=== PATIENT | female | born 1995 | race Caucasian/White ===

== ENCOUNTER 2019-01-17 15:16 | Emergency (ER) | payer BC ==
[2019-01-17] MEDS ORDERED: GI COCKTAIL 45 ML (Maalox/Lidocaine) PO ONE (15:59)
[2019-01-17] MEDS ORDERED: PROTONIX 40 MG IV IV ONE ×2 (15:59→16:30)
[2019-01-17] MEDS ORDERED: Sodium Chloride 0.9% 1000 ML 1,000 ML IV SCH (16:00)
--- NOTE | 2019-01-17 16:06 | ERPHSYRPT ---
- History of Present Illness Time Seen by Provider: 01/17/19 15:45 Historian: patient Exam Limitations: clinical condition Patient Subjective Stated Complaint: mid epigastric region pain that causes light headedness, confusion, and sweating Triage Nursing Assessment: Pt began having pain in her mid epigastric region off and on about a month ago and has become more frequent, pain feels like a balloon filling up and then releasing, causes sweating, confusion, feels like the blood is rushing to her head, light headedness, vitals wnl, hx of stomach ulcers in 2012 and she thinks that she had them in her esophagus too, hx of h- pylori a couple of times, gall bladder has been removed due to having the same pain in the past and the pain did go away until now Physician History: PATIENT WITH A HISTORY OF H-PYLORI AND CHOLECYSTECTOMY 2012 COMPLAINS OF EPIGASTRIC PAIN FOR 1 MONTH INTERMITTENTLY. HAS ASSOCIATED NAUSEA, DENIES EMESIS , REFLUX SYMPTOMS, FEVER OR URINARY SYMPTOMS. Timing/Duration: week(s), intermittent Activities at Onset: none Quality: sharpness, stabbing Abdominal Pain Onset Location: epigastric Pain Radiation: no radiation Severity of Pain-Max: moderate Severity of Pain-Current: moderate Modifying Factors: Improves With: nothing, other (NO CORRELATION WITH MEALS) Previous symptoms: same symptoms as today (HISTORY OF GASTRIC ULCERS) Allergies/Adverse Reactions: ciprofloxacin [From Cipro] Allergy (Verified 01/17/19 15:45) Rash ciprofloxacin HCl [From Cipro] Allergy (Verified 01/17/19 15:45) Rash codeine Allergy (Verified 01/17/19 15:45) Rash hydrocodone bitartrate [From Vicodin] Adverse Reaction (Verified 01/17/19 15:45) Vomiting Hx Tetanus, Diphtheria Vaccination/Date Given: Yes Hx Influenza Vaccination/Date Given: Yes - Review of Systems Constitutional: No Fever, No Chills Eyes: No Symptoms Ears, Nose, & Throat: No Symptoms Respiratory: No Symptoms, No Cough, No Dyspnea Cardiac: No Symptoms, No Chest Pain, No Edema, No Syncope Abdominal/Gastrointestinal: Abdominal Pain, No Nausea, No Vomiting, No Diarrhea Genitourinary Symptoms: No Symptoms, No Dysuria Musculoskeletal: No Symptoms, No Back Pain, No Neck Pain Skin: No Rash Neurological: No Dizziness, No Focal Weakness, No Sensory Changes Psychological: No Symptoms Endocrine: No Symptoms All Other Systems: Reviewed and Negative - Past Medical History Pertinent Past Medical History: Yes Neurological History: No Pertinent History ENT History: No Pertinent History Cardiac History: No Pertinent History Respiratory History: No Pertinent History Endocrine Medical History: No Pertinent History Musculoskeletal History: No Pertinent History GI Medical History: Gallbladder Disease, Ulcer History: No Pertinent History Psycho-Social History: No Pertinent History Female Reproductive Disorders: No Pertinent History - Past Surgical History Past Surgical History: Yes Neuro Surgical History: No Pertinent History Cardiac: No Pertinent History Respiratory: No Pertinent History Gastrointestinal: Cholecystectomy Genitourinary: No Pertinent History Musculoskeletal: Orthopedic Surgery Female Surgical History: No Pertinent History Other Surgical History: tonsils, - Social History Smoking Status: Never smoker Exposure to second hand smoke: No Drug Use: none Patient Lives Alone: No - Female History Hx Now: No (Has Mirana) - Nursing Vital Signs Nursing Vital Signs: Initial Vital Signs Temperature 98.4 F 01/17/19 15:21 Pulse Rate 100 H 01/17/19 15:21 Blood Pressure 130/89 01/17/19 15:21 O2 Sat by Pulse Oximetry 97 01/17/19 15:21 Pain Scale Pain Intensity 7 - Physical Exam General Appearance: no apparent distress, alert Eye Exam: PERRL/EOMI, eyes nml inspection Ears, Nose, Throat Exam: normal ENT inspection, pharynx normal, moist mucous membranes Neck Exam: normal inspection, non-tender, supple, full range of motion Respiratory Exam: normal breath sounds, lungs clear, No respiratory distress Cardiovascular Exam: regular rate/rhythm, normal heart sounds Gastrointestinal/Abdomen Exam: soft, normal bowel sounds, tenderness (SUPERIOR EPIGASTRIC TENDERNESS ADJACENT TO XYPHOID PROCESS), other (THERE IS NO SUPRAPUBIC TENDERNESS), No mass Back Exam: normal inspection, normal range of motion, No CVA tenderness, No vertebral tenderness Extremity Exam: normal inspection, normal range of motion, pelvis stable Neurologic Exam: alert, oriented x 3, cooperative, normal mood/affect, nml cerebellar function, sensation nml, No motor deficits Skin Exam: normal color, warm, dry SpO2 Interpretation: normal SpO2: 97 - CT Exams Abdomen/Pelvis CT Interpretation: Discussed w/radiologist (NORMAL APPENDIX, NO FREE FLUID OR AIR, THERE IS A 6.3CM RIGHT OVARIAN CYST, IUD IN SITU) Ordered Tests: Active Orders 24 hr Category Date Time Status IV Insertion STAT Care 01/17/19 15:59 Active ABDOMEN AND PELVIS W CONTRAST [CT] Stat Exams 01/17/19 16:02 Completed AMYLASE Stat Lab 01/17/19 16:19 Completed CBC W DIFF Stat Lab 01/17/19 16:19 Completed CMP Stat Lab 01/17/19 16:19 Completed HCG,QUALITATIVE URINE Stat Lab 01/17/19 16:21 Completed LIPASE Stat Lab 01/17/19 16:19 Completed UA W/RFX UR CULTURE Stat Lab 01/17/19 16:21 Completed Medication Summary Generic Name Dose Route Start Last Admin Trade Name Freq PRN Reason Stop Dose Admin Sodium Chloride 1,000 mls @ 100 mls/hr 01/17/19 16:00 01/17/19 16:35 Sodium Chloride 0.9% 1000 Ml IV 02/16/19 15:59 100 mls/hr .Q10H CONCETTA Administration Discontinued Medications Generic Name Dose Route Start Last Admin Trade Name Freq PRN Reason Stop Dose Admin Al Hydrox/Mg Hydrox/Simethicone Confirm 01/17/19 16:32 Maalox Es 30 Ml Unit Dose Administered 01/17/19 16:33 Dose 30 ml .ROUTE .STK-MED ONE Lidocaine HCl Confirm 01/17/19 16:31 Xylocaine Hcl Viscous * Administered 01/17/19 16:32 Dose 15 ml .ROUTE .STK-MED ONE Magnesium Hydroxide 45 ml 01/17/19 15:59 01/17/19 16:39 Gi Cocktail 45 Ml (Maalox/Lidocaine) PO 01/17/19 16:00 45 ml STAT ONE Administration Pantoprazole Sodium 40 mg 01/17/19 15:59 01/17/19 16:40 Protonix 40 Mg Iv IV 01/17/19 16:00 40 mg STAT ONE Administration Pantoprazole Sodium Confirm 01/17/19 16:30 Protonix 40 Mg Iv Administered 01/17/19 16:31 Dose 40 mg IV .STK-MED ONE Lab/Rad Data: Laboratory Result Diagrams 01/17/19 16:19 01/17/19 16:19 Laboratory Results 01/17/19 01/17/19 01/17/19 Range/Units 16:21 16:21 16:19 WBC (4.0-10.5) K/mm3 RBC (4.1-5.4) M/mm3 Hgb (12.0-16.0) gm/dl Hct (35-47) % MCV (78-100) fl MCH (26-32) pg MCHC (32-36) g/dl RDW (11.5-14.0) % Plt Count (150-450) K/mm3 MPV (6-9.5) fl Gran % (36.0-66.0) % Eos # (Auto) (0-0.5) Absolute Lymphs (auto) (1.0-4.6) Absolute Monos (auto) (0.0-1.3) Lymphocytes % (24.0-44.0) % Monocytes % (0.0-12.0) % Eosinophils % (0.00-5.0) % Basophils % (0.0-0.4) % Absolute Granulocytes (1.4-6.9) Basophils # (0-0.4) Sodium 140 (137-145) mmol/L Potassium 3.7 (3.5-5.1) mmol/L Chloride 102 (98-107) mmol/L Carbon Dioxide 30 (22-30) mmol/L Anion Gap 12.1 (5-15) MEQ/L BUN 16 (7-17) mg/dL Creatinine 0.83 (0.52-1.04) mg/dL Estimated GFR > 60.0 ML/MIN Glucose 86 (74-106) mg/dL Calcium 9.1 (8.4-10.2) mg/dL Total Bilirubin 1.00 (0.2-1.3) mg/dL AST 113 H (14-36) U/L ALT 55 H (0-35) U/L Alkaline Phosphatase 77 (38-126) U/L Serum Total Protein 7.0 (6.3-8.2) g/dL Albumin 4.2 (3.5-5.0) g/dL Amylase (30-110) U/L Lipase (23-300) U/L Urine Color YELLOW (YELLOW) Urine Appearance CLEAR (CLEAR) Urine pH 9.0 (5-6) Ur Specific Tracy 1.008 (1.005-1.025) Urine Protein NEGATIVE (Negative) Urine Ketones NEGATIVE (NEGATIVE) Urine Blood MODERATE (0-5) Calin/ul Urine Nitrite NEGATIVE (NEGATIVE) Urine Bilirubin NEGATIVE (NEGATIVE) Urine Urobilinogen NEGATIVE (0-1) mg/dL Ur Leukocyte Esterase NEGATIVE (NEGATIVE) Urine WBC (Auto) NONE (0-5) /HPF Urine RBC (Auto) NONE (0-2) /HPF U Epithel Cells (Auto) NONE (FEW) /HPF Urine Bacteria (Auto) NONE (NEGATIVE) /HPF Urine Culture Reflexed NO (NO) Urine Glucose NEGATIVE (NEGATIVE) mg/dL Urine HCG, Qual NEGATIVE (Negative) 01/17/19 01/17/19 Range/Units 16:19 16:19 WBC 6.7 (4.0-10.5) K/mm3 RBC 4.80 (4.1-5.4) M/mm3 Hgb 13.8 (12.0-16.0) gm/dl Hct 42.2 (35-47) % MCV 87.9 (78-100) fl MCH 28.8 (26-32) pg MCHC 32.7 (32-36) g/dl RDW 13.6 (11.5-14.0) % Plt Count 267 (150-450) K/mm3 MPV 11.3 H (6-9.5) fl Gran % 64.3 (36.0-66.0) % Eos # (Auto) 0.04 (0-0.5) Absolute Lymphs (auto) 1.63 (1.0-4.6) Absolute Monos (auto) 0.71 (0.0-1.3) Lymphocytes % 24.2 (24.0-44.0) % Monocytes % 10.5 (0.0-12.0) % Eosinophils % 0.6 (0.00-5.0) % Basophils % 0.4 (0.0-0.4) % Absolute Granulocytes 4.32 (1.4-6.9) Basophils # 0.03 (0-0.4) Sodium (137-145) mmol/L Potassium (3.5-5.1) mmol/L Chloride (98-107) mmol/L Carbon Dioxide (22-30) mmol/L Anion Gap (5-15) MEQ/L BUN (7-17) mg/dL Creatinine (0.52-1.04) mg/dL Estimated GFR ML/MIN Glucose (74-106) mg/dL Calcium (8.4-10.2) mg/dL Total Bilirubin (0.2-1.3) mg/dL AST (14-36) U/L ALT (0-35) U/L Alkaline Phosphatase (38-126) U/L Serum Total Protein (6.3-8.2) g/dL Albumin (3.5-5.0) g/dL Amylase 45 (30-110) U/L Lipase 50 (23-300) U/L Urine Color (YELLOW) Urine Appearance (CLEAR) Urine pH (5-6) Ur Specific Tracy (1.005-1.025) Urine Protein (Negative) Urine Ketones (NEGATIVE) Urine Blood (0-5) Calin/ul Urine Nitrite (NEGATIVE) Urine Bilirubin (NEGATIVE) Urine Urobilinogen (0-1) mg/dL Ur Leukocyte Esterase (NEGATIVE) Urine WBC (Auto) (0-5) /HPF Urine RBC (Auto) (0-2) /HPF U Epithel Cells (Auto) (FEW) /HPF Urine Bacteria (Auto) (NEGATIVE) /HPF Urine Culture Reflexed (NO) Urine Glucose (NEGATIVE) mg/dL Urine HCG, Qual (Negative) - Progress Progress: improved, pain not gone completely Progress Note: 01/17/19 17:43 PATIENT ADMINISTERED IV NORMAL SALINE 200ML/HR, PEPCID 20MG IV, GI COCKTAIL ORALLY, TORADOL 30MG IV, DISCUSSED THE RESULTS OF CT SCAN FINDINGS, 6.3CM OVARIAN CYST Counseled pt/family regarding: lab results, diagnosis, need for follow-up, rad results - Departure Time of Disposition: 18:15 Departure Disposition: Home Clinical Impression: ABDOMINAL PAIN, RIGHT OVARIAN CYST Condition: Stable Critical Care Time: No Referrals: KIMBERLY MEHTA MD [Primary Care Provider] - Additional Instructions: TAKE 2 TEASPOONS OF EITHER MAALOX OR MYLANTA AFTER MEALS. ZOFRAN 4MG EVERY 6 HOURS FOR NAUSEA. PROTONIX 40MG DAILY FOR 1MONTH. FIORICET 1 TABLET EVERY 4 HOURS NEEDED FOR PAIN. CONSULT YOUR PRIMARY CARE PROVIDER FOR EVALUATION ALONG WITH YOUR SATELLITE DISH TECHNICIAN FOR EVALUATION OF YOUR OVARIAN CYST. RETURN TO EMERGENCY FOR INCREASING PAIN OR VOMITING. Prescriptions: Ondansetron ODT 4 MG [Zofran Odt 4 mg] 4 mg PO Q6H PRN PRN #10 tab.rapdis PRN Reason: Nausea PANTOPRAZOLE 40 mg Tablet [Protonix 40MG Tablet] 40 mg PO DAILY #30 tab
[2019-01-17 16:25] LABS: BASOPHIL % 0.4 % (0.0-0.4); Basophil (Absolute #) 0.03 (0-0.4); Eosinophil % 0.6 % (0.00-5.0); Eosinophil (Absolute #) 0.04 (0-0.5); Granulocyte Absolute (ANC) 4.32 (1.4-6.9); Granulocytes % 64.3 % (36.0-66.0); Hematocrit 42.2 % (35-47); Hemoglobin 13.8 gm/dl (12.0-16.0); Lymphocyte (Absolute #) 1.63 (1.0-4.6); Lymphocytes % 24.2 % (24.0-44.0); Mean Cell Volume 87.9 fl (78-100); Mean Corpuscular Hemoglobin 28.8 pg (26-32); Mean Corpuscular Hgb Concent. 32.7 g/dl (32-36); Mean Platelet Volume 11.3 fl (6-9.5); Monocyte (Absolute #) 0.71 (0.0-1.3); Monocytes % 10.5 % (0.0-12.0); Platelet Count 267 K/mm3 (150-450); Red Cell Distribution Width 13.6 % (11.5-14.0); White Blood Count 6.7 K/mm3 (4.0-10.5)
[2019-01-17] MEDS ORDERED: XYLOCAINE HCl Viscous ONE (16:31)
[2019-01-17] MEDS ORDERED: Sodium Chloride 0.9% 1000 ML 1,000 ML ONE (16:32)
[2019-01-17] MEDS ORDERED: MAALOX ES 30 ML UNIT DOSE ONE (16:32)
[2019-01-17 16:33] LABS: Appearance CLEAR (CLEAR); Bilirubin NEGATIVE (NEGATIVE); Blood MODERATE Ery/ul (0-5); Glucose NEGATIVE (NEGATIVE); Ketones NEGATIVE (NEGATIVE); Leukocyte Esterase NEGATIVE (NEGATIVE); Nitrite NEGATIVE (NEGATIVE); Protein,Urine Dip NEGATIVE (Negative); Specific Gravity 1.008 (1.005-1.025); Urobilinogen NEGATIVE mg/dL (0-1)
[2019-01-17 16:46] LABS: ALBUMIN 4.2 g/dL (3.5-5.0); ALKALINE PHOSPHATASE 77 U/L (38-126); AMYLASE 45 U/L (30-110); ANION GAP 12.1 MEQ/L (5-15); BLOOD UREA NITROGEN 16 mg/dL (7-17); CHLORIDE 102 mmol/L (98-107); Calcium 9.1 mg/dL (8.4-10.2); Carbon Dioxide 30 mmol/L (22-30); Creatinine 1 0.83 mg/dL (0.52-1.04); Glucose 86 mg/dL (74-106); LIPASE 50 U/L (23-300); Potassium 3.7 mmol/L (3.5-5.1); SGOT/AST 113 U/L (14-36); SGPT/ALT 55 U/L (0-35); SODIUM 140 mmol/L (137-145)
--- NOTE | 2019-01-17 17:12 | XRAY ---
Indication: Epigastric pain. Multiple contiguous axial images obtained through the abdomen and pelvis using 80 cc Isovue-370 contrast only. Comparison: None Lung bases are clear. Heart is not enlarged. Stomach is distended with food/fluid. Noncontrasted stomach and bowel loops appear nonobstructed. Normal appendix. Mild diffuse scattered colonic fecal debris throughout. 6.3 cm right ovary cyst. No free fluid/air. IUD and tampon in situ. Previous cholecystectomy. Remaining liver, pancreas, spleen, adrenal glands, kidneys, ureters, bladder, uterus, and aorta appear unremarkable. No pathologic retroperitoneal lymphadenopathy. Osseous structures intact. No ventral or inguinal hernias. Impression: 1. 6.3 cm right ovary cyst. IUD and tampon in situ. 2. Fecal stasis without obstruction. 3. Remaining CT abdomen/pelvis with contrast exam is negative. CTDI 16.31
[2019-01-17] MEDS ORDERED: TORAdol 30 mg Injection IV ONE (17:33)
[2019-01-17] MEDS ORDERED: TORAdol 30 mg Injection ONE (17:35)
[2019-01-17 19:23] VITALS: BP 139/98; PULSE 81; O2SAT 98
== END 2019-01-17 19:23 | disposition home or self-care (01) ==
LOC: ED 15:16
DX: R10.9 Unspecified abdominal pain (principal); N83.201 Unspecified ovarian cyst, right side; Z87.11 Personal history of peptic ulcer disease
CPT/HCPCS: 36000; 36415; 74177; 80053; 81001; 82150; 83690; 84703; 85025; 96360; 96361; 96374; 96375; 99284; J1885; A9270-GY

== ENCOUNTER 2019-02-13 17:59 | Emergency (ER) | payer BC ==
--- NOTE | 2019-02-13 18:30 | ERPHSYRPT ---
- History of Present Illness Historian: patient Exam Limitations: no limitations Patient Subjective Stated Complaint: Pain in the lower abdominal quadrants that radiates to the lower back, pain with palpatation on the right upper and lower quadrants, hx of ovarian cysts and was in this ER about 3 weeks ago for them, N& V due to abdominal pain Triage Nursing Assessment: Walked into ER, BP 148/96, rates pain 8/10, states that the pain is different then last time she was here, doesn't appear to be in any distress, color pink cool and dry Timing/Duration: today, worse Activities at Onset: none Quality: cramping, pressure Abdominal Pain Onset Location: RLQ, LLQ Pain Radiation: flank (bilat) Severity of Pain-Max: moderate Severity of Pain-Current: moderate Modifying Factors: Improves With: nothing Associated Symptoms: nausea, vomiting, No diarrhea, No headache, No loss of appetite, No shortness of breath Previous symptoms: no prior history Hx Tetanus, Diphtheria Vaccination/Date Given: Yes Hx Influenza Vaccination/Date Given: Yes <LUISA HERRERA - Last Filed: 02/13/19 18:58> <GIANLUCA LLOYD - Last Filed: 02/13/19 21:27> - History of Present Illness Time Seen by Provider: 02/13/19 18:20 Physician History: 23 y/o white female presents with bilat lower quad abd pain r>l and associated bilat flank pain. pt has been seen several times by either ED, pcp, or GI doctor in last 3 weeks. pt had h/o pudz and cholecystectomy in past and on a recent ct scan abd/pelvis, there was large right ovarian cyst. pelvic u/s a week later showed it smaller. pain today came on rather suddenly and one episode of vomiting. pt has a mirena in place. todays pain is different than abd pain of last 3 weeks (LUISA HERRERA) Allergies/Adverse Reactions: ciprofloxacin [From Cipro] Allergy (Verified 02/13/19 18:16) Rash ciprofloxacin HCl [From Cipro] Allergy (Verified 02/13/19 18:16) Rash codeine Allergy (Verified 02/13/19 18:16) Rash hydrocodone bitartrate [From Vicodin] Adverse Reaction (Verified 02/13/19 18:16) Vomiting Home Medications: Hyoscyamine Sulfate 0.125 mg [Anaspaz 0.125 mg] 0.125 mg PO UD PRN [History] - Review of Systems Constitutional: No Symptoms Eyes: No Symptoms Ears, Nose, & Throat: No Symptoms Respiratory: No Symptoms Cardiac: No Symptoms Abdominal/Gastrointestinal: Abdominal Pain, Nausea, Vomiting, No Diarrhea Genitourinary Symptoms: No Symptoms, No Dysuria, No Frequency, No Hematuria Musculoskeletal: No Symptoms Skin: No Symptoms Neurological: No Symptoms Psychological: No Symptoms Endocrine: No Symptoms Hematologic/Lymphatic: No Symptoms Immunological/Allergic: No Symptoms All Other Systems: Reviewed and Negative <LUISA HERRERA - Last Filed: 02/13/19 18:58> - Past Medical History Pertinent Past Medical History: Yes Neurological History: No Pertinent History ENT History: No Pertinent History Cardiac History: No Pertinent History Respiratory History: No Pertinent History Endocrine Medical History: No Pertinent History Musculoskeletal History: No Pertinent History GI Medical History: Gallbladder Disease, Ulcer History: No Pertinent History Psycho-Social History: No Pertinent History Female Reproductive Disorders: No Pertinent History - Past Surgical History Past Surgical History: Yes Neuro Surgical History: No Pertinent History Cardiac: No Pertinent History Respiratory: No Pertinent History Gastrointestinal: Cholecystectomy Genitourinary: No Pertinent History Musculoskeletal: Orthopedic Surgery Female Surgical History: No Pertinent History Other Surgical History: tonsils, - Social History Smoking Status: Never smoker Exposure to second hand smoke: No Drug Use: none Patient Lives Alone: No - Female History Hx Last Menstrual Period: 01/20/2019 Hx Now: No (Merena) <LUISA HERRERA - Last Filed: 02/13/19 18:58> - Physical Exam General Appearance: mild distress, alert, anxiety Eye Exam: PERRL/EOMI Ears, Nose, Throat Exam: normal ENT inspection, No TMs normal Neck Exam: normal inspection, non-tender, supple, full range of motion Respiratory Exam: normal breath sounds, lungs clear, airway intact, No chest tenderness, No respiratory distress Cardiovascular Exam: regular rate/rhythm, normal heart sounds, normal peripheral pulses Gastrointestinal/Abdomen Exam: soft, normal bowel sounds, tenderness (mild bilat lower quad tenderness), guarding (mild), No rebound Pelvic Exam: No not done Rectal Exam: not done Extremity Exam: normal inspection, normal range of motion, pelvis stable Neurologic Exam: alert, oriented x 3, cooperative, 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 tested Skin Exam: normal color, warm, dry Lymphatic Exam: No adenopathy SpO2 Interpretation: normal SpO2: 99 O2 Delivery: Room Air <LUISA HERRERA - Last Filed: 02/13/19 18:58> - Nursing Vital Signs Nursing Vital Signs: Initial Vital Signs Temperature 98.2 F 02/13/19 18:04 Pulse Rate 85 02/13/19 18:04 Blood Pressure 148/96 02/13/19 18:04 O2 Sat by Pulse Oximetry 99 02/13/19 18:04 Pain Scale Pain Intensity 8 - Course Nursing assessment & vital signs reviewed: Yes <LUISA HERRERA - Last Filed: 02/13/19 18:58> Ordered Tests: Active Orders 24 hr Category Date Time Status Clean Catch Urine Specimen STAT Care 02/13/19 18:32 Active IV Insertion STAT Care 02/13/19 18:32 Active ABDOMEN AND PELVIS W/0 CONTRAS [CT] Stat Exams 02/13/19 18:32 Taken AMYLASE Stat Lab 02/13/19 18:41 Completed CBC W DIFF Stat Lab 02/13/19 18:41 Completed CMP Stat Lab 02/13/19 18:41 Completed HCG,QUALITATIVE URINE Stat Lab 02/13/19 18:41 Completed LIPASE Stat Lab 02/13/19 18:41 Completed Lactic Acid Stat Lab 02/13/19 18:32 Completed UA W/RFX UR CULTURE Stat Lab 02/13/19 18:41 Completed Medication Summary Discontinued Medications Generic Name Dose Route Start Last Admin Trade Name Mahamed PRN Reason Stop Dose Admin Sodium Chloride 1,000 mls @ 999 mls/hr 02/13/19 18:32 02/13/19 18:39 Sodium Chloride 0.9% 1000 Ml IV 02/13/19 19:32 999 mls/hr .Q1H1M STA Administration Sodium Chloride Confirm 02/13/19 18:37 Sodium Chloride 0.9% 1000 Ml Administered 02/13/19 18:38 Dose 1,000 mls @ ud .ROUTE .STK-MED ONE Ondansetron HCl 4 mg 02/13/19 18:32 02/13/19 18:39 Zofran 4 Mg/2 Ml Vial IV 02/13/19 18:33 4 mg STAT ONE Administration Ondansetron HCl Confirm 02/13/19 18:37 Zofran 4 Mg/2 Ml Vial Administered 02/13/19 18:38 Dose 4 mg .ROUTE .STK-MED ONE Lab/Rad Data: Laboratory Result Diagrams 02/13/19 18:41 02/13/19 18:41 Laboratory Results 02/13/19 02/13/19 02/13/19 Range/Units 18:41 18:41 18:41 WBC (4.0-10.5) K/mm3 RBC (4.1-5.4) M/mm3 Hgb (12.0-16.0) gm/dl Hct (35-47) % MCV (78-100) fl MCH (26-32) pg MCHC (32-36) g/dl RDW (11.5-14.0) % Plt Count (150-450) K/mm3 MPV (6-9.5) fl Gran % (36.0-66.0) % Eos # (Auto) (0-0.5) Absolute Lymphs (auto) (1.0-4.6) Absolute Monos (auto) (0.0-1.3) Lymphocytes % (24.0-44.0) % Monocytes % (0.0-12.0) % Eosinophils % (0.00-5.0) % Basophils % (0.0-0.4) % Absolute Granulocytes (1.4-6.9) Basophils # (0-0.4) Sodium 138 (137-145) mmol/L Potassium 3.8 (3.5-5.1) mmol/L Chloride 103 (98-107) mmol/L Carbon Dioxide 29 (22-30) mmol/L Anion Gap 9.9 (5-15) MEQ/L BUN 13 (7-17) mg/dL Creatinine 0.83 (0.52-1.04) mg/dL Estimated GFR > 60.0 ML/MIN Glucose 125 H (74-106) mg/dL Lactic Acid (0.4-2.0) Calcium 9.5 (8.4-10.2) mg/dL Total Bilirubin 0.40 (0.2-1.3) mg/dL AST 23 (14-36) U/L ALT 28 (0-35) U/L Alkaline Phosphatase 65 (38-126) U/L Serum Total Protein 6.9 (6.3-8.2) g/dL Albumin 4.0 (3.5-5.0) g/dL Amylase 40 (30-110) U/L Lipase 33 (23-300) U/L Urine Color YELLOW (YELLOW) Urine Appearance CLEAR (CLEAR) Urine pH 6.0 (5-6) Ur Specific [place] 1.019 (1.005-1.025) Urine Protein NEGATIVE (Negative) Urine Ketones NEGATIVE (NEGATIVE) Urine Blood MODERATE (0-5) Calin/ul Urine Nitrite NEGATIVE (NEGATIVE) Urine Bilirubin NEGATIVE (NEGATIVE) Urine Urobilinogen NEGATIVE (0-1) mg/dL Ur Leukocyte Esterase NEGATIVE (NEGATIVE) Urine WBC (Auto) 0-2 (0-5) /HPF Urine RBC (Auto) NONE (0-2) /HPF U Epithel Cells (Auto) RARE (FEW) /HPF Urine Bacteria (Auto) NONE (NEGATIVE) /HPF Urine Mucus (Auto) SLIGHT (NEGATIVE) /HPF Urine Culture Reflexed NO (NO) Urine Glucose NEGATIVE (NEGATIVE) mg/dL Urine HCG, Qual NEGATIVE (Negative) 02/13/19 02/13/19 Range/Units 18:41 18:32 WBC 6.2 (4.0-10.5) K/mm3 RBC 4.50 (4.1-5.4) M/mm3 Hgb 13.2 (12.0-16.0) gm/dl Hct 39.6 (35-47) % MCV 88.0 (78-100) fl MCH 29.3 (26-32) pg MCHC 33.3 (32-36) g/dl RDW 13.2 (11.5-14.0) % Plt Count 211 (150-450) K/mm3 MPV 11.3 H (6-9.5) fl Gran % 67.0 H (36.0-66.0) % Eos # (Auto) 0.10 (0-0.5) Absolute Lymphs (auto) 1.41 (1.0-4.6) Absolute Monos (auto) 0.50 (0.0-1.3) Lymphocytes % 22.8 L (24.0-44.0) % Monocytes % 8.1 (0.0-12.0) % Eosinophils % 1.6 (0.00-5.0) % Basophils % 0.5 (0.0-0.4) % Absolute Granulocytes 4.14 (1.4-6.9) Basophils # 0.03 (0-0.4) Sodium (137-145) mmol/L Potassium (3.5-5.1) mmol/L Chloride (98-107) mmol/L Carbon Dioxide (22-30) mmol/L Anion Gap (5-15) MEQ/L BUN (7-17) mg/dL Creatinine (0.52-1.04) mg/dL Estimated GFR ML/MIN Glucose (74-106) mg/dL Lactic Acid 1.0 (0.4-2.0) Calcium (8.4-10.2) mg/dL Total Bilirubin (0.2-1.3) mg/dL AST (14-36) U/L ALT (0-35) U/L Alkaline Phosphatase (38-126) U/L Serum Total Protein (6.3-8.2) g/dL Albumin (3.5-5.0) g/dL Amylase (30-110) U/L Lipase (23-300) U/L Urine Color (YELLOW) Urine Appearance (CLEAR) Urine pH (5-6) Ur Specific [place] (1.005-1.025) Urine Protein (Negative) Urine Ketones (NEGATIVE) Urine Blood (0-5) Calin/ul Urine Nitrite (NEGATIVE) Urine Bilirubin (NEGATIVE) Urine Urobilinogen (0-1) mg/dL Ur Leukocyte Esterase (NEGATIVE) Urine WBC (Auto) (0-5) /HPF Urine RBC (Auto) (0-2) /HPF U Epithel Cells (Auto) (FEW) /HPF Urine Bacteria (Auto) (NEGATIVE) /HPF Urine Mucus (Auto) (NEGATIVE) /HPF Urine Culture Reflexed (NO) Urine Glucose (NEGATIVE) mg/dL Urine HCG, Qual (Negative) <LUISA HERRERA - Last Filed: 02/13/19 18:58> <GIANLUCA LLOYD - Last Filed: 02/13/19 21:27> - Progress Progress Note: 02/13/19 18:59 signed out/transfer of care to dr. lloyd. he accepts pt in transfer. (LUISA HERRERA) 02/13/19 21:18 23-year-old white female with history of gallbladder disease, ovarian cysts. Patient has been seen here approximately 3 weeks ago secondary to lower abdominal pain patient apparently had an ovarian cyst. Patient was given Furacin which she states really didn't help much. She apparently had some epigastric pain as well she states she was seen by a wind operations supervisor placed on Levsin. She states for the past couple of days she's been having some bilateral lower abdominal pain worse on the right she had 2 episodes of vomiting. Past medical history is remarkable for gallbladder disease, ovarian cyst. Past surgical history includes cholecystectomy tonsils. Physical examination vitals are stable Well-developed well-nourished white female she is alert oriented times. 3 head is atraumatic normocephalic. Eyes PERRLA EOMI fundi are unremarkable. Ears TMs dunham intact bilaterally. Nose is clear. Throat is clear. Neck is supple full range of motion. Lungs are clear. Heart regular rate and rhythm without murmur. Abdomen soft nontender nondistended positive bowel sounds patient apparently with lower abdominal tenderness earlier. Extremities full range of motion pulse equal symmetrical 2 over 4. Labs CBC white blood cell 6.2 hemoglobin 13.2 hematocrit 39.6 platelets 211 urinalysis specific gravity 1.019 pH 60-2 white cells per high-power field. Chemistry sodium 138 potassium 3.8 chloride 103 bicarbonate 29 BUN 13 creatinine 0.83 [address]. Lactate 1.0. CT abdomen and pelvis compared to 3, 20, tooth thousand 19. Previous 6 mm right ovarian cyst now 1.8 cm and diminished fecal stasis. Stable IUD a normal appendix. Remaining abdomen/pelvis negative Patient appears to be stable she does states that she has some lower abdominal pain I've discussed the patient's care with her she apparently had been seen by Dr. Gregory she states she plans to see an [facility] [employer] specialist but cannot get in right now patient appears to be stable. Will go ahead and give patient morphine 4 mg IV she is already received IV Zofran and IV normal saline. Will plan to discharge patient with tramadol for pain. I've offered the patient Zofran however she states she has this at home. Impression lower abdominal pain, Ovarian cyst (GIANLUCA LLOYD) <LUISA HERRERA - Last Filed: 02/13/19 18:58> - Departure Departure Disposition: Home Critical Care Time: No <GIANLUCA LLOYD - Last Filed: 02/13/19 21:27> - Departure Clinical Impression: Right ovarian cyst Abdominal pain Qualifiers: Abdominal location: lower abdomen, unspecified Qualified Code(s): R10.30 - Lower abdominal pain, unspecified Condition: Fair Referrals: KIMBERLY MEHTA MD [Primary Care Provider] - Additional Instructions: Return home. Plenty of fluids clear fluids only 24-48 hours if abdominal pain, nausea, or vomiting. Follow-up with your [facility] physician. Tramadol as directed for pain Return for acute distress or for severe symptoms Prescriptions: Tramadol HCl 50 mg [Ultram 50 mg] 50 mg PO Q6H PRN PRN #12 tablet PRN Reason: abdominal pain
[2019-02-13] MEDS ORDERED: Zofran 4 MG/2 ML VIAL IV ONE (18:32)
[2019-02-13] MEDS ORDERED: Sodium Chloride 0.9% 1000 ML 1,000 ML IV STA (18:32)
[2019-02-13] MEDS ORDERED: Sodium Chloride 0.9% 1000 ML 1,000 ML ONE (18:37)
[2019-02-13] MEDS ORDERED: Zofran 4 MG/2 ML VIAL ONE (18:37)
[2019-02-13 18:50] LABS: BASOPHIL % 0.5 % (0.0-0.4); Basophil (Absolute #) 0.03 (0-0.4); Eosinophil % 1.6 % (0.00-5.0); Granulocyte Absolute (ANC) 4.14 (1.4-6.9); Hematocrit 39.6 % (35-47); Hemoglobin 13.2 gm/dl (12.0-16.0); Lymphocyte (Absolute #) 1.41 (1.0-4.6); Lymphocytes % 22.8 % (24.0-44.0); Mean Corpuscular Hemoglobin 29.3 pg (26-32); Mean Corpuscular Hgb Concent. 33.3 g/dl (32-36); Mean Platelet Volume 11.3 fl (6-9.5); Monocytes % 8.1 % (0.0-12.0); Platelet Count 211 K/mm3 (150-450); Red Cell Distribution Width 13.2 % (11.5-14.0); White Blood Count 6.2 K/mm3 (4.0-10.5)
[2019-02-13 19:01] LABS: Appearance CLEAR (CLEAR); Bilirubin NEGATIVE (NEGATIVE); Blood MODERATE Ery/ul (0-5); Epithelial Cells RARE /HPF (FEW); Glucose NEGATIVE (NEGATIVE); Ketones NEGATIVE (NEGATIVE); Leukocyte Esterase NEGATIVE (NEGATIVE); Mucus SLIGHT /HPF (NEGATIVE); Nitrite NEGATIVE (NEGATIVE); Protein,Urine Dip NEGATIVE (Negative); Specific Gravity 1.019 (1.005-1.025); Urobilinogen NEGATIVE mg/dL (0-1); WBC 0-2 /HPF (0-5)
[2019-02-13 19:07] LABS: ALKALINE PHOSPHATASE 65 U/L (38-126); AMYLASE 40 U/L (30-110); ANION GAP 9.9 MEQ/L (5-15); BLOOD UREA NITROGEN 13 mg/dL (7-17); CHLORIDE 103 mmol/L (98-107); Calcium 9.5 mg/dL (8.4-10.2); Carbon Dioxide 29 mmol/L (22-30); Creatinine 1 0.83 mg/dL (0.52-1.04); Glucose 125 mg/dL (74-106); LIPASE 33 U/L (23-300); Potassium 3.8 mmol/L (3.5-5.1); SGOT/AST 23 U/L (14-36); SGPT/ALT 28 U/L (0-35); SODIUM 138 mmol/L (137-145); Total Protein 6.9 g/dL (6.3-8.2)
[2019-02-13] MEDS ORDERED: MORPHINE SULFATE 4 MG INJ IV ONE (21:17)
[2019-02-13] MEDS ORDERED: MORPHINE SULFATE 4 MG INJ ONE (21:22)
[2019-02-13 21:52] VITALS: BP 122/82; PULSE 90; O2SAT 97
--- NOTE | 2019-02-14 08:37 | XRAY ---
Indication: Bilateral lower flank pain. Multiple contiguous axial images obtained through the abdomen and pelvis without contrast as ordered. Comparison: January 17, 2019. Lung bases now demonstrates mild bilateral tree-in-bud opacities favoring pneumonitis. No consolidation or effusion. Heart is not enlarged. Noncontrasted stomach and bowel loops appear nonobstructed. Again normal appendix. Interval diminished fecal debris. Previous 6.3 cm right ovary cyst now 1.8 cm. Stable IUD and cholecystectomy clips. Remaining liver, pancreas, spleen, adrenal glands, kidneys, ureters, bladder, and aorta appear unremarkable for noncontrast exam. Impression: 1. Tree-in-bud opacities in both lung bases favoring pneumonitis. 2. Remaining CT abdomen/pelvis without contrast exam is negative. CT DI 14.49
== END 2019-02-13 21:54 | disposition home or self-care (01) ==
LOC: ED 17:59
DX: N83.201 Unspecified ovarian cyst, right side (principal); R10.30 Lower abdominal pain, unspecified
CPT/HCPCS: 36415; 74176; 80053; 81001; 82150; 83605; 83690; 84703; 85025; 96360; 96374; 96375; 99284; J2270; J2405

== ENCOUNTER 2019-05-20 18:43 | Emergency (ER) | payer BC ==
[2019-05-20] MEDS ORDERED: Sodium Chloride 0.9% 1000 ML 1,000 ML IV STA (19:10)
[2019-05-20] MEDS ORDERED: Reglan 10 MG/2 ML IV ONE (19:12)
--- NOTE | 2019-05-20 19:20 | ERPHSYRPT ---
- History of Present Illness Time Seen by Provider: 05/20/19 19:04 Historian: patient Exam Limitations: no limitations Patient Subjective Stated Complaint: pt reports she is 6 weeks , states today around 1600 she got dizzy while doing some laundry, pt reports she vomited x 1 earlier today. reports nausea and urinary frequency. pt also reports pelvic pain. pt denies any vaginal discharge or bleeding. pt states her first OB apt is Jun [address] Saunders at [facility]. Triage Nursing Assessment: pt is axo3, pt speech is clear, answers all questions appropriately, afebrile, pupils perrl, resps easy and non labored, radial pulses strong and equal, cap refill < 3 seconds, abd soft nontender, bowel sounds present normoactive x 4, skin pink warm dry. Physician History: Pt is 6 weeks , did not have care yet. She started c/o left lower abdominal, pelvic pain since yesterday, urinary urgency for few days and frontal, and facial, sinus headaches, nausea around 4 PM, vomited twice, denies fever, chills, no chest pain, cough, SOB, diarrhea, vaginal bleeding or discharge, other complaints. She also mentioned, she fell on her buttock this morning, denies direct abdominal trauma. Timing/Duration: hour(s) (3) Activities at Onset: none Quality: cramping Abdominal Pain Onset Location: LLQ Pain Radiation: no radiation Severity of Pain-Max: moderate Severity of Pain-Current: moderate Modifying Factors: Improves With: nothing Associated Symptoms: fatigue, loss of appetite, nausea, vomiting, other ( dizziness, headaches) Previous symptoms: no prior history Allergies/Adverse Reactions: ciprofloxacin [From Cipro] Allergy (Verified 05/20/19 19:08) Rash ciprofloxacin HCl [From Cipro] Allergy (Verified 05/20/19 19:08) Rash codeine Allergy (Verified 05/20/19 19:08) Rash hydrocodone bitartrate [From Vicodin] Adverse Reaction (Verified 05/20/19 19:08) Vomiting Hx Tetanus, Diphtheria Vaccination/Date Given: Yes Hx Influenza Vaccination/Date Given: No Hx Pneumococcal Vaccination/Date Given: No Immunizations Up to Date: Yes - Review of Systems Constitutional: No Symptoms Eyes: No Symptoms Ears, Nose, & Throat: Other (sinus, facial pain) Respiratory: No Symptoms Cardiac: No Symptoms Abdominal/Gastrointestinal: Abdominal Pain, Nausea, Vomiting Genitourinary Symptoms: Dysuria, Frequency Musculoskeletal: No Symptoms Skin: No Symptoms Neurological: Dizziness, Headache All Other Systems: Reviewed and Negative - Past Medical History Pertinent Past Medical History: Yes Neurological History: No Pertinent History ENT History: No Pertinent History Cardiac History: No Pertinent History Respiratory History: No Pertinent History Endocrine Medical History: No Pertinent History Musculoskeletal History: No Pertinent History GI Medical History: Gallbladder Disease, Ulcer History: No Pertinent History Psycho-Social History: No Pertinent History Female Reproductive Disorders: No Pertinent History - Past Surgical History Past Surgical History: Yes Neuro Surgical History: No Pertinent History Cardiac: No Pertinent History Respiratory: No Pertinent History Gastrointestinal: Cholecystectomy Genitourinary: No Pertinent History Musculoskeletal: Orthopedic Surgery Female Surgical History: No Pertinent History Other Surgical History: tonsils, - Social History Smoking Status: Never smoker Exposure to second hand smoke: No Drug Use: none Patient Lives Alone: No - Female History Hx Last Menstrual Period: 04/04/19 Hx Now: Yes Expected Date of Delivery: 01/11/20 - Nursing Vital Signs Nursing Vital Signs: Initial Vital Signs Temperature 98.1 F 05/20/19 18:49 Pulse Rate 86 05/20/19 18:49 Respiratory Rate 20 05/20/19 18:49 Blood Pressure 138/84 05/20/19 18:49 Pain Scale Pain Intensity 0 - Physical Exam General Appearance: no apparent distress Eye Exam: PERRL/EOMI, eyes nml inspection Ears, Nose, Throat Exam: normal ENT inspection, pharynx normal Neck Exam: normal inspection, non-tender, supple, No carotid bruit, No JVD Respiratory Exam: normal breath sounds, lungs clear, airway intact, No chest tenderness Cardiovascular Exam: regular rate/rhythm, normal heart sounds, normal peripheral pulses, capillary refill <2 sec, No murmur Gastrointestinal/Abdomen Exam: soft, normal bowel sounds, tenderness (LLQ, left pelvic), No distention, No mass, No guarding, No ecchymosis, No pulsatile mass, No rebound, No organomegaly Back Exam: normal inspection, CVA tenderness (mild, left) Extremity Exam: normal inspection, No calf tenderness, No tg's sign, No pedal edema Neurologic Exam: alert, oriented x 3, cooperative, normal mood/affect, nml cerebellar function, nml station & gait, No motor deficits, No motor weakness Skin Exam: normal color, warm, dry, No rash, No petechiae, No cyanosis, No diaphoresis Lymphatic Exam: No adenopathy SpO2 Interpretation: normal SpO2: 97 O2 Delivery: Room Air - Course Nursing assessment & vital signs reviewed: Yes - Radiology Ultrasound Exam OB Ultrasound: Other (leann, live IUP, ( 5 wks, 6 days old),no ectopic ,.) Ordered Tests: Active Orders 24 hr Category Date Time Status IV Insertion STAT Care 05/20/19 19:10 Active OB <14 WKS 1ST GESTATION [US] Stat Exams 05/20/19 20:48 Taken CBC W DIFF Stat Lab 05/20/19 19:53 Completed CMP Stat Lab 05/20/19 19:53 Completed HCG, Quantitative (Inhouse) Stat Lab 05/20/19 19:53 Completed LIPASE Stat Lab 05/20/19 19:53 Completed UA W/RFX UR CULTURE Stat Lab 05/20/19 19:15 Completed Urine Triage Profile Stat Lab 05/20/19 19:15 Completed Medication Summary Generic Name Dose Route Start Last Admin Trade Name Freq PRN Reason Stop Dose Admin Cephalexin HCl 500 mg 05/20/19 22:37 Keflex 500 Mg PO 05/20/19 22:38 STAT ONE Discontinued Medications Generic Name Dose Route Start Last Admin Trade Name Freq PRN Reason Stop Dose Admin Sodium Chloride 1,000 mls @ 999 mls/hr 05/20/19 19:10 05/20/19 21:15 Sodium Chloride 0.9% 1000 Ml IV 05/20/19 20:10 Infused .Q1H1M STA Infusion Sodium Chloride Confirm 05/20/19 19:48 Sodium Chloride 0.9% 1000 Ml Administered 05/20/19 19:49 Dose 1,000 mls @ ud .ROUTE .STK-MED ONE Metoclopramide HCl 10 mg 05/20/19 19:12 05/20/19 19:58 Reglan 10 Mg/2 Ml IV 05/20/19 19:13 10 mg STAT ONE Administration Metoclopramide HCl Confirm 05/20/19 19:48 Reglan 10 Mg/2 Ml Administered 05/20/19 19:49 Dose 10 mg .ROUTE .STK-MED ONE Lab/Rad Data: Laboratory Result Diagrams 05/20/19 19:53 05/20/19 19:53 Laboratory Results 05/20/19 05/20/19 05/20/19 Range/Units 19:53 19:53 19:15 WBC 9.2 (4.0-10.5) K/mm3 RBC 4.42 (4.1-5.4) M/mm3 Hgb 13.5 (12.0-16.0) gm/dl Hct 39.5 (35-47) % MCV 89.4 (78-100) fl MCH 30.5 (26-32) pg MCHC 34.2 (32-36) g/dl RDW 12.7 (11.5-14.0) % Plt Count 259 (150-450) K/mm3 MPV 11.5 H (6-9.5) fl Gran % 67.9 H (36.0-66.0) % Eos # (Auto) 0.06 (0-0.5) Absolute Lymphs (auto) 2.26 (1.0-4.6) Absolute Monos (auto) 0.60 (0.0-1.3) Lymphocytes % 24.6 (24.0-44.0) % Monocytes % 6.5 (0.0-12.0) % Eosinophils % 0.7 (0.00-5.0) % Basophils % 0.3 (0.0-0.4) % Absolute Granulocytes 6.24 (1.4-6.9) Basophils # 0.03 (0-0.4) Sodium 138 (137-145) mmol/L Potassium 3.4 L (3.5-5.1) mmol/L Chloride 105 (98-107) mmol/L Carbon Dioxide 25 (22-30) mmol/L Anion Gap 10.8 (5-15) MEQ/L BUN 11 (7-17) mg/dL Creatinine 0.69 (0.52-1.04) mg/dL Estimated GFR > 60.0 ML/MIN Glucose 83 (74-106) mg/dL Calcium 9.3 (8.4-10.2) mg/dL Total Bilirubin 0.50 (0.2-1.3) mg/dL AST 44 H (14-36) U/L ALT 51 H (0-35) U/L Alkaline Phosphatase 60 (38-126) U/L Serum Total Protein 7.0 (6.3-8.2) g/dL Albumin 4.1 (3.5-5.0) g/dL Lipase 34 (23-300) U/L Beta HCG, Quant 88233 mIU/ml Urine Color (YELLOW) Urine Appearance (CLEAR) Urine pH (5-6) Ur Specific [place] (1.005-1.025) Urine Protein (Negative) Urine Ketones (NEGATIVE) Urine Blood (0-5) Calin/ul Urine Nitrite (NEGATIVE) Urine Bilirubin (NEGATIVE) Urine Urobilinogen (0-1) mg/dL Ur Leukocyte Esterase (NEGATIVE) Urine WBC (Auto) (0-5) /HPF Urine RBC (Auto) (0-2) /HPF U Epithel Cells (Auto) (FEW) /HPF Urine Bacteria (Auto) (NEGATIVE) /HPF Urine Mucus (Auto) (NEGATIVE) /HPF Urine Culture Reflexed (NO) Urine Glucose (NEGATIVE) mg/dL Urine Opiates Level NEGATIVE (NEGATIVE) Ur Methadone NEGATIVE (NEGATIVE) Urine Barbiturates NEGATIVE (NEGATIVE) Ur Phencyclidine (PCP) NEGATIVE (NEGATIVE) Urine Amphetamine NEGATIVE (NEGATIVE) U Benzodiazepine Level NEGATIVE (NEGATIVE) Urine Cocaine NEGATIVE (NEGATIVE) Urine Marijuana (THC) NEGATIVE (NEGATIVE) 05/20/19 Range/Units 19:15 WBC (4.0-10.5) K/mm3 RBC (4.1-5.4) M/mm3 Hgb (12.0-16.0) gm/dl Hct (35-47) % MCV (78-100) fl MCH (26-32) pg MCHC (32-36) g/dl RDW (11.5-14.0) % Plt Count (150-450) K/mm3 MPV (6-9.5) fl Gran % (36.0-66.0) % Eos # (Auto) (0-0.5) Absolute Lymphs (auto) (1.0-4.6) Absolute Monos (auto) (0.0-1.3) Lymphocytes % (24.0-44.0) % Monocytes % (0.0-12.0) % Eosinophils % (0.00-5.0) % Basophils % (0.0-0.4) % Absolute Granulocytes (1.4-6.9) Basophils # (0-0.4) Sodium (137-145) mmol/L Potassium (3.5-5.1) mmol/L Chloride (98-107) mmol/L Carbon Dioxide (22-30) mmol/L Anion Gap (5-15) MEQ/L BUN (7-17) mg/dL Creatinine (0.52-1.04) mg/dL Estimated GFR ML/MIN Glucose (74-106) mg/dL Calcium (8.4-10.2) mg/dL Total Bilirubin (0.2-1.3) mg/dL AST (14-36) U/L ALT (0-35) U/L Alkaline Phosphatase (38-126) U/L Serum Total Protein (6.3-8.2) g/dL Albumin (3.5-5.0) g/dL Lipase (23-300) U/L Beta HCG, Quant mIU/ml Urine Color YELLOW (YELLOW) Urine Appearance SLIGHTLY CLOUDY (CLEAR) Urine pH 5.0 (5-6) Ur Specific [place] 1.024 (1.005-1.025) Urine Protein NEGATIVE (Negative) Urine Ketones NEGATIVE (NEGATIVE) Urine Blood NEGATIVE (0-5) Calin/ul Urine Nitrite NEGATIVE (NEGATIVE) Urine Bilirubin NEGATIVE (NEGATIVE) Urine Urobilinogen 2 (0-1) mg/dL Ur Leukocyte Esterase SMALL (NEGATIVE) Urine WBC (Auto) 11-15 (0-5) /HPF Urine RBC (Auto) 0-2 (0-2) /HPF U Epithel Cells (Auto) RARE (FEW) /HPF Urine Bacteria (Auto) NONE (NEGATIVE) /HPF Urine Mucus (Auto) SLIGHT (NEGATIVE) /HPF Urine Culture Reflexed NO (NO) Urine Glucose NEGATIVE (NEGATIVE) mg/dL Urine Opiates Level (NEGATIVE) Ur Methadone (NEGATIVE) Urine Barbiturates (NEGATIVE) Ur Phencyclidine (PCP) (NEGATIVE) Urine Amphetamine (NEGATIVE) U Benzodiazepine Level (NEGATIVE) Urine Cocaine (NEGATIVE) Urine Marijuana (THC) (NEGATIVE) - Progress Progress: improved Progress Note: 05/20/19 22:38 We discussed our findings with patient, she was started on PO Keflex, potassium replaced, nausea resolved, she is hungry and afebrile, discharge her to rest x 1 -2 days, drink plenty of fluids, and follow up with her physician this week. Counseled pt/family regarding: lab results, diagnosis, need for follow-up, rad results - Departure Departure Disposition: Home Clinical Impression: Urinary tract infection Qualifiers: Urinary tract infection type: site unspecified Hematuria presence: without hematuria Qualified Code(s): N39.0 - Urinary tract infection, site not specified Condition: Stable Critical Care Time: No Referrals: CIPRIANO SMITH DO [Primary Care Provider] - Instructions: Dizziness, Nonvertigo, (DC), Urinary Tract Infection, Adult (DC) , Urinary Tract Infections in Additional Instructions: Rest x 1-2 days, drink plenty of fluids, and follow up with your physician in 1 week, return if severe pain, vomiting, fever> 102 F or vaginal bleeding! Prescriptions: Cephalexin Mh 500 mg [Keflex 500 mg] 500 mg PO QID #28 capsule
[2019-05-20 19:37] LABS: BASOPHIL % 0.3 % (0.0-0.4); Basophil (Absolute #) 0.03 (0-0.4); Eosinophil % 0.7 % (0.00-5.0); Eosinophil (Absolute #) 0.06 (0-0.5); Granulocyte Absolute (ANC) 6.24 (1.4-6.9); Granulocytes % 67.9 % (36.0-66.0); Hematocrit 39.5 % (35-47); Hemoglobin 13.5 gm/dl (12.0-16.0); Lymphocyte (Absolute #) 2.26 (1.0-4.6); Lymphocytes % 24.6 % (24.0-44.0); Mean Cell Volume 89.4 fl (78-100); Mean Corpuscular Hemoglobin 30.5 pg (26-32); Mean Corpuscular Hgb Concent. 34.2 g/dl (32-36); Mean Platelet Volume 11.5 fl (6-9.5); Monocytes % 6.5 % (0.0-12.0); Platelet Count 259 K/mm3 (150-450); Red Blood Count 4.42 M/mm3 (4.1-5.4); Red Cell Distribution Width 12.7 % (11.5-14.0); White Blood Count 9.2 K/mm3 (4.0-10.5)
[2019-05-20 19:48] LABS: Amphetamine,Urine NEGATIVE (NEGATIVE); Barbiturate,Urine NEGATIVE (NEGATIVE); Benzodiazepine,Urine NEGATIVE (NEGATIVE); Cocaine,Urine NEGATIVE (NEGATIVE); Methadone,Urine NEGATIVE (NEGATIVE); Opiate,Urine NEGATIVE (NEGATIVE); PCP,Urine NEGATIVE (NEGATIVE); THC,Urine NEGATIVE (NEGATIVE)
[2019-05-20] MEDS ORDERED: Reglan 10 MG/2 ML ONE (19:48)
[2019-05-20] MEDS ORDERED: Sodium Chloride 0.9% 1000 ML 1,000 ML ONE (19:48)
[2019-05-20 19:51] LABS: Appearance SLIGHTLY CLOUDY (CLEAR); Bilirubin NEGATIVE (NEGATIVE); Blood NEGATIVE Ery/ul (0-5); Epithelial Cells RARE /HPF (FEW); Glucose NEGATIVE (NEGATIVE); Ketones NEGATIVE (NEGATIVE); Leukocyte Esterase SMALL (NEGATIVE); Mucus SLIGHT /HPF (NEGATIVE); Nitrite NEGATIVE (NEGATIVE); Protein,Urine Dip NEGATIVE (Negative); RBC 0-2 /HPF (0-2); Specific Gravity 1.024 (1.005-1.025); Urobilinogen 2 mg/dL (0-1)
[2019-05-20 20:14] LABS: ALBUMIN 4.1 g/dL (3.5-5.0); ALKALINE PHOSPHATASE 60 U/L (38-126); ANION GAP 10.8 MEQ/L (5-15); BLOOD UREA NITROGEN 11 mg/dL (7-17); CHLORIDE 105 mmol/L (98-107); Calcium 9.3 mg/dL (8.4-10.2); Carbon Dioxide 25 mmol/L (22-30); Creatinine 1 0.69 mg/dL (0.52-1.04); Glucose 83 mg/dL (74-106); LIPASE 34 U/L (23-300); Potassium 3.4 mmol/L (3.5-5.1); SGOT/AST 44 U/L (14-36); SGPT/ALT 51 U/L (0-35); SODIUM 138 mmol/L (137-145)
[2019-05-20 20:38] LABS: HCG, Quantitative (Inhouse) 30643 mIU/ml
[2019-05-20] MEDS ORDERED: K-LYTE 25 MEQ PO ONE (22:37)
[2019-05-20] MEDS ORDERED: KEFLEX 500 MG PO ONE (22:37)
[2019-05-20] MEDS ORDERED: KEFLEX 500 MG ONE (22:43)
[2019-05-20] MEDS ORDERED: K-LYTE 25 MEQ ONE (22:43)
[2019-05-20 23:13] VITALS: BP 138/84; PULSE 76; O2SAT 100
--- NOTE | 2019-05-21 08:56 | XRAY ---
Exam: OB ultrasound less than 14 weeks from 05/20/2019. Comparison: Pelvic ultrasound from 01/24/2019. Indication: Pelvic pain in 24-year-old female, rule out ectopic . Technique: Multiple transabdominal sonogram images were obtained of the pelvis. Findings: The uterus measures 8.8 cm in length, 4.2 cm in AP dimension, and 4.7 cm in width. A normal shaped and positioned gestational sac containing a single live intrauterine pole is seen within the upper uterine segment. cardiac activity was identified with a heart rate of 111 bpm. The crown-rump length measures 0.3 cm in length suggesting a gestational age of 5 weeks 6 days, plus or -0 weeks 4 days yielding an estimated due date of 01/14/2020. This is in reasonable accordance with the gestational age by LMP which had suggested a due date of 01/09/2020.. I see no abnormal fluid within the lower uterine segment or cervical canal. The vaginal stripe appears unremarkable. No free intraperineal fluid is seen within the cul-de-sac. The maternal right ovary measures 2.1 cm in width, 2.4 cm in length, and 1.2 cm in AP dimension. Normal color blood flow is seen within the maternal right ovary. Prior small right ovarian cyst on the 19/05/2019 is no longer seen. The maternal left ovary measures 3.2 cm in width, 2.9 cm in length, 1.5 cm in AP dimension. There appears to be a small corpus luteum cyst within the maternal left ovary measuring 1.6 cm x 1.0 cm. Normal color blood flow is seen within the maternal left ovary. Impression: 1. 5 week 6 day single live intrauterine fetus with a heart rate of 111 bpm. Gestational sac shape and position appear unremarkable. Estimated due date based on today's size measurements is 01/14/2020. 2. The remainder of the maternal uterus and maternal ovaries are remarkable only for a probable 1.6 cm x 1.0 cm corpus luteal cyst within the left ovary.
== END 2019-05-20 23:15 | disposition home or self-care (01) ==
LOC: ED 18:43
DX: N39.0 Urinary tract infection, site not specified (principal)
CPT/HCPCS: 36000; 36415; 76801; 80053; 80307; 81001; 83690; 84702; 85025; 96374; 99284; A9270-GY

== ENCOUNTER 2019-06-25 17:43 | Emergency (ER) | payer BC | END 2019-06-25 21:48 | disposition home or self-care (01) | LOC: ED 17:43 ==

== ENCOUNTER 2019-08-19 18:46 | Observation (INO) | payer BC ==
[2019-08-19 19:31] LABS: Amourphous Crystal MODERATE /HPF (NEGATIVE); Appearance CLOUDY (CLEAR); Bilirubin NEGATIVE (NEGATIVE); Blood NEGATIVE Ery/ul (0-5); Epithelial Cells RARE /HPF (FEW); Glucose NEGATIVE (NEGATIVE); Ketones NEGATIVE (NEGATIVE); Leukocyte Esterase MODERATE (NEGATIVE); Nitrite NEGATIVE (NEGATIVE); Protein,Urine Dip NEGATIVE (Negative); RBC NONE SEEN /HPF (0-2); Urobilinogen 2 mg/dL (0-1)
[2019-08-19 19:52] VITALS: BP 124/76; PULSE 79
[2019-08-19 20:23] LABS: BASOPHIL % 0.2 % (0.0-0.4); Basophil (Absolute #) 0.02 (0-0.4); Eosinophil % 1.3 % (0.00-5.0); Eosinophil (Absolute #) 0.13 (0-0.5); Hematocrit 35.2 % (35-47); Hemoglobin 12.2 gm/dl (12.0-16.0); Lymphocyte (Absolute #) 2.25 (1.0-4.6); Lymphocytes % 22.3 % (24.0-44.0); Mean Corpuscular Hemoglobin 31.5 pg (26-32); Mean Corpuscular Hgb Concent. 34.7 g/dl (32-36); Mean Platelet Volume 11.7 fl (6-9.5); Monocyte (Absolute #) 0.61 (0.0-1.3); Neutrophil % 70.2 % (36.0-66.0); Platelet Count 207 K/mm3 (150-450); Red Blood Count 3.87 M/mm3 (4.1-5.4); Red Cell Distribution Width 13.7 % (11.5-14.0); White Blood Count 10.1 K/mm3 (4.0-10.5)
[2019-08-19 20:37] LABS: ALBUMIN 3.3 g/dL (3.5-5.0); ALKALINE PHOSPHATASE 49 U/L (38-126); ANION GAP 11.9 MEQ/L (5-15); BLOOD UREA NITROGEN 10 mg/dL (7-17); CHLORIDE 106 mmol/L (98-107); Calcium 9.1 mg/dL (8.4-10.2); Carbon Dioxide 25 mmol/L (22-30); Glucose 86 mg/dL (74-106); Potassium 3.8 mmol/L (3.5-5.1); SGOT/AST 18 U/L (14-36); SGPT/ALT 13 U/L (0-35); SODIUM 138 mmol/L (137-145); Total Protein 6.2 g/dL (6.3-8.2)
== END 2019-08-19 21:12 | disposition home or self-care (01) ==
LOC: OB 18:46
PROVIDERS: ADMIT Family Medicine; ATTEND Family Medicine
DX: Z34.82 Encounter for supervision of other normal pregnancy, second trimester (principal)
CPT/HCPCS: 36415; 80053; 81001; 85025; G0378

== ENCOUNTER 2021-10-28 06:00 | Day surgery (SDC) | payer BC ==
[2021-10-28] MEDS ORDERED: Lactated Ringers 1,000 ML IV SCH (06:30)
[2021-10-28] MEDS ORDERED: Xylocaine-Mpf 2% 5 Ml Vial ONE (07:46)
[2021-10-28] MEDS ORDERED: DIPRIVAN 200 MG/20 ML IV ONE (07:46)
[2021-10-28] MEDS ORDERED: Versed 2 MG/2 ML Injection ONE (07:46)
[2021-10-28 09:24] VITALS: BP 134/82; PULSE 77; O2SAT 100
--- NOTE | 2021-10-28 13:58 | OP ---
SURGERY DATE/TIME: 10/28/2021 0800 PREOPERATIVE DIAGNOSES: 1) Epigastric abdominal pain. 2) Gastroesophageal reflux disease. POSTOPERATIVE DIAGNOSIS: Normal exam. PROCEDURE: EGD. SURGEON: Rupert Mehta M.D. ANESTHESIA: MAC by Juice Lee CRNA. ESTIMATED BLOOD LOSS: None. SPECIMENS: None. DESCRIPTION OF PROCEDURE: After informed written consent was obtained, the patient was taken to the endoscopy suite. She had a bite block inserted and placed in left lateral decubitus position. Anesthesia was titrated to the desired level of consciousness. The endoscope was inserted into the posterior oropharynx. Under direct visualization the esophagus was easily traversed. The esophageal mucosa had a normal mucosal appearance free of any lesions or defects. Upon entering the stomach there was normal rugated gastric mucosa. There were no inflammatory changes, no ulcerations and no evidence of any bleeding. Overall mucosal structures appeared within normal limits. The pylorus was traversed and the first and second portions of the duodenum likewise had a normal mucosal appearance free of any lesions or defects. Upon withdrawal again all mucosal structures appeared within normal limits including the gastroesophageal junction and esophageal mucosa. The scope was removed and the patient was transferred to the recovery room in good condition. I have recommended pantoprazole 40 mg daily and will have her follow up with her primary care physician.
== END 2021-10-28 09:30 | disposition home or self-care (01) ==
LOC: SDC 06:00
PROVIDERS: ATTEND Family Medicine
DX: R10.13 Epigastric pain (principal); K21.9 Gastro-esophageal reflux disease without esophagitis
CPT/HCPCS: 84703; J2250; J2704

== ENCOUNTER 2022-11-03 22:45 | Emergency (ER) | payer BC ==
--- NOTE | 2022-11-03 22:52 | ERPHSYRPT ---
- History of Present Illness Time Seen by Provider: 11/03/22 22:51 Historian: patient Exam Limitations: no limitations Physician History: This is a 27-year-old white female patient of Dr. Byron Gilliam who presents with right lower abdominal pain that began last night and worsened today. She also has pain in the right flank area. Patient ordinarily is on oral contr aceptive agents. However, in the last month, she lost her prescription and she stated that they would not refill for a month. She started having some vaginal bleeding today and she thinks this is the time she would ordinarily have a menstrual period. She does have a history of cholecystectomy in the past as well as ruptured ovarian cyst on both sides. She states that it feels like a ruptured ovarian cyst on the right side but the pain is much more intense and has lasted longer. Patient has a history of gastroesophageal reflux disease and is on Protonix daily. Patient denies chest pain. She has no shortness of breath. Patient states she is not allergic to any narcotics however, she does get nauseated with codeine and hydrocodone. Timing/Duration: yesterday, worse Activities at Onset: none Abdominal Pain Onset Location: RLQ, suprapubic Pain Radiation: no radiation (Right) Severity of Pain-Max: moderate Severity of Pain-Current: moderate Associated Symptoms: nausea, No chest pain, No fever/chills Previous symptoms: same symptoms as today, no recent treatment Allergies/Adverse Reactions: ciprofloxacin HCl [From Cipro] Allergy (Verified 11/03/22 22:50) Rash codeine Allergy (Verified 11/03/22 22:50) Rash hydrocodone bitartrate [From Vicodin] Adverse Reaction (Verified 11/03/22 22:50) Vomiting Home Medications: Dextroamphetamine/Amphetamine [Adderall 12.5 mg Tablet] 25 mg PO DAILY 11/03/22 [History] Hx Tetanus, Diphtheria Vaccination/Date Given: Yes Hx Influenza Vaccination/Date Given: No Hx Pneumococcal Vaccination/Date Given: No Travel Risk - International Travel Have you traveled outside of the country in past 3 weeks: No - Coronavirus Screening Are you exhibiting any of the following symptoms?: No Close contact with a COVID-19 positive Pt in past 14-21 Days: No - Review of Systems Constitutional: No Symptoms Eyes: No Symptoms Ears, Nose, & Throat: No Symptoms Respiratory: No Symptoms Cardiac: No Symptoms Abdominal/Gastrointestinal: Abdominal Pain (Right lower quadrant and right suprapubic region), Nausea, No Vomiting, No Diarrhea, No Constipation Genitourinary Symptoms: No Symptoms Musculoskeletal: No Symptoms Skin: No Symptoms Neurological: No Symptoms Psychological: No Symptoms Endocrine: No Symptoms Hematologic/Lymphatic: No Symptoms Immunological/Allergic: No Symptoms All Other Systems: Reviewed and Negative - Past Medical History Pertinent Past Medical History: Yes Neurological History: No Pertinent History ENT History: No Pertinent History Cardiac History: No Pertinent History Respiratory History: No Pertinent History Endocrine Medical History: No Pertinent History Musculoskeletal History: No Pertinent History GI Medical History: GERD, Gallbladder Disease, Ulcer History: No Pertinent History Psycho-Social History: No Pertinent History Female Reproductive Disorders: No Pertinent History Other Medical History: history of gerd, reoccuring h. pylori + in past, - Past Surgical History Past Surgical History: Yes Neuro Surgical History: No Pertinent History Cardiac: No Pertinent History Respiratory: No Pertinent History Gastrointestinal: Cholecystectomy Genitourinary: No Pertinent History Musculoskeletal: Orthopedic Surgery Female Surgical History: No Pertinent History Other Surgical History: tonsils, left foot surgery x2 - Social History Smoking Status: Never smoker Exposure to second hand smoke: No Drug Use: none Patient Lives Alone: No - Nursing Vital Signs Nursing Vital Signs: Initial Vital Signs Temperature 97.8 F 11/03/22 22:50 Pulse Rate 95 H 11/03/22 22:50 Respiratory Rate 17 11/03/22 22:50 Blood Pressure 141/107 11/03/22 22:50 O2 Sat by Pulse Oximetry 99 11/03/22 22:50 Pain Scale Pain Intensity 4 - Physical Exam General Appearance: no apparent distress, alert, anxiety Eye Exam: PERRL/EOMI, eyes nml inspection Ears, Nose, Throat Exam: normal ENT inspection, moist mucous membranes Neck Exam: normal inspection, non-tender, supple, full range of motion Respiratory Exam: normal breath sounds, lungs clear, airway intact, No chest tenderness, No respiratory distress Cardiovascular Exam: regular rate/rhythm, normal heart sounds, normal peripheral pulses Gastrointestinal/Abdomen Exam: soft, normal bowel sounds, tenderness (Right lower quadrant and right suprapubic region to palpation), guarding (RLQ and right suprapubic region to palpation), rebound (+/- RLQ and right suprapubic region to palpation) Pelvic Exam: not done Rectal Exam: not done Back Exam: normal inspection, normal range of motion, CVA tenderness, vertebral tenderness Extremity Exam: normal inspection, normal range of motion, pelvis stable Neurologic Exam: alert, oriented x 3, 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, 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, normal mood/affect, nml cerebellar function, nml station & gait, sensation nml Skin Exam: normal color, warm, dry Lymphatic Exam: No adenopathy SpO2 Interpretation: normal O2 Delivery: Room Air - Course Nursing assessment & vital signs reviewed: Yes Ordered Tests: Active Orders 24 hr Category Date Time Status IV Insertion STAT Care 11/03/22 23:11 Active ABDOMEN AND PELVIS W/0 CONTRAS [CT] Stat Exams 11/03/22 23:11 Ordered AMYLASE Stat Lab 11/03/22 23:23 Completed CBC W DIFF Stat Lab 11/03/22 23:23 Completed CMP Stat Lab 11/03/22 23:23 Completed HCG,QUALITATIVE URINE Stat Lab 11/03/22 23:24 Completed UA W/RFX CULTURE Stat Lab 11/03/22 23:24 Completed Medication Summary Discontinued Medications Generic Name Dose Route Start Last Admin Trade Name Freq PRN Reason Stop Dose Admin Hydromorphone HCl 0.5 mg 11/03/22 23:11 11/03/22 23:34 Hydromorphone 1 Mg/1ml Inj 1 Mg/Ml Syringe IV 11/03/22 23:12 0.5 mg STAT ONE Administration Hydromorphone HCl Confirm 11/03/22 23:25 Hydromorphone 1 Mg/1ml Inj 1 Mg/Ml Syringe Administered 11/03/22 23:26 Dose 1 mg .ROUTE .STK-MED ONE Sodium Chloride 1,000 mls @ 999 mls/hr 11/03/22 23:11 11/03/22 23:35 Sodium Chloride 0.9% 1000 Ml IV 11/04/22 00:11 999 mls/hr .Q1H1M STA Administration Sodium Chloride Confirm 11/03/22 23:25 Sodium Chloride 0.9% 1000 Ml Administered 11/03/22 23:26 Dose 1,000 mls @ ud .ROUTE .STK-MED ONE Ketorolac Tromethamine 30 mg 11/03/22 23:11 11/03/22 23:32 Ketorolac Tromethamine 30 Mg/Ml Inj IV 11/03/22 23:12 30 mg STAT ONE Administration Ketorolac Tromethamine Confirm 11/03/22 23:24 Ketorolac Tromethamine 30 Mg/Ml Inj Administered 11/03/22 23:25 Dose 30 mg .ROUTE .STK-MED ONE Ondansetron HCl 4 mg 11/03/22 23:11 11/03/22 23:33 Ondansetron Hcl 4 Mg/2 Ml Vial IV 11/03/22 23:12 4 mg STAT ONE Administration Ondansetron HCl Confirm 11/03/22 23:24 Ondansetron Hcl 4 Mg/2 Ml Vial Administered 11/03/22 23:25 Dose 4 mg .ROUTE .STK-MED ONE Lab/Rad Data: Laboratory Result Diagrams 11/03/22 23:23 11/03/22 23:23 Laboratory Results 11/03/22 11/03/22 11/03/22 Range/Units 23:24 23:24 23:23 WBC (4.0-10.5) x10^3/uL RBC (4.1-5.4) x10^6/uL Hgb (12.0-16.0) g/dL Hct (35-47) % MCV (78-100) fL MCH (26-32) pg MCHC (32-36) g/dL RDW (11.5-14.0) % Plt Count (150-450) x10^3/uL MPV (7.5-11.0) fL Gran % (36.0-66.0) % Immature Gran % (Auto) (0.00-0.4) % Nucleat RBC Rel Count (0.00-0.1) % Eos # (Auto) (0-0.5) x10^3/uL Immature Gran # (Auto) (0.00-0.03) x10^3u/L Absolute Lymphs (auto) (1.0-4.6) x10^3/uL Absolute Monos (auto) (0.0-1.3) x10^3/uL Absolute Nucleated RBC (0.00-0.01) x10^3u/L Lymphocytes % (24.0-44.0) % Monocytes % (0.0-12.0) % Eosinophils % (0.00-5.0) % Basophils % (0.0-0.4) % Absolute Granulocytes (1.4-6.9) x10^3/uL Basophils # (0-0.4) x10^3/uL Sodium 135 L (137-145) mmol/L Potassium 3.6 (3.5-5.1) mmol/L Chloride 103 (98-107) mmol/L Carbon Dioxide 28 (22-30) mmol/L Anion Gap 7.5 (5-15) MEQ/L BUN 11 (7-17) mg/dL Creatinine 0.85 (0.52-1.04) mg/dL Estimated GFR > 60.0 ML/MIN Glucose 100 (74-106) mg/dL Calcium 9.0 (8.4-10.2) mg/dL Total Bilirubin 0.60 (0.2-1.3) mg/dL AST 27 (14-36) U/L ALT 19 (0-35) U/L Alkaline Phosphatase 78 (38-126) U/L Serum Total Protein 6.9 (6.3-8.2) g/dL Albumin 4.0 (3.5-5.0) g/dL Amylase 43 (30-110) U/L Urinalys Dipstick Clnc MAIN LAB Urine Color YELLOW (YELLOW) Urine Appearance CLEAR (CLEAR) Urine pH 6.0 (5-6) Ur Specific [place] 1.025 (1.005-1.025) POC Urine Protein Conf NEGATIVE (Negative) Urine Ketones NEGATIVE (NEGATIVE) Urine Nitrite NEGATIVE (NEGATIVE) Urine Bilirubin NEGATIVE (NEGATIVE) Urine Urobilinogen 1 A (0-1) mg/dL Urine Leukocytes NEGATIVE (NEGATIVE) Urine WBC (Auto) NONE (0-5) /HPF Urine RBC (Auto) 3-5 A (0-2) /HPF U Epithel Cells (Auto) NONE (FEW) /HPF Urine Bacteria (Auto) NONE (NEGATIVE) /HPF Urine RBC MODERATE A (0-5) Calin/ul Urine Mucus (Auto) SLIGHT A (NEGATIVE) /HPF Ur Culture Indicated? NO Urine Glucose NEGATIVE (NEGATIVE) mg/dL Urine HCG, Qual NEGATIVE (Negative) 11/03/22 Range/Units 23:23 WBC 4.9 (4.0-10.5) x10^3/uL RBC 4.77 (4.1-5.4) x10^6/uL Hgb 13.7 (12.0-16.0) g/dL Hct 41.6 (35-47) % MCV 87.2 (78-100) fL MCH 28.7 (26-32) pg MCHC 32.9 (32-36) g/dL RDW 12.1 (11.5-14.0) % Plt Count 251 (150-450) x10^3/uL MPV 11.0 (7.5-11.0) fL Gran % 56.4 (36.0-66.0) % Immature Gran % (Auto) 0.2 (0.00-0.4) % Nucleat RBC Rel Count 0.0 (0.00-0.1) % Eos # (Auto) 0.10 (0-0.5) x10^3/uL Immature Gran # (Auto) 0.01 (0.00-0.03) x10^3u/L Absolute Lymphs (auto) 1.38 (1.0-4.6) x10^3/uL Absolute Monos (auto) 0.60 (0.0-1.3) x10^3/uL Absolute Nucleated RBC 0.00 (0.00-0.01) x10^3u/L Lymphocytes % 28.3 (24.0-44.0) % Monocytes % 12.3 H (0.0-12.0) % Eosinophils % 2.0 (0.00-5.0) % Basophils % 0.8 (0.0-0.4) % Absolute Granulocytes 2.75 (1.4-6.9) x10^3/uL Basophils # 0.04 (0-0.4) x10^3/uL Sodium (137-145) mmol/L Potassium (3.5-5.1) mmol/L Chloride (98-107) mmol/L Carbon Dioxide (22-30) mmol/L Anion Gap (5-15) MEQ/L BUN (7-17) mg/dL Creatinine (0.52-1.04) mg/dL Estimated GFR ML/MIN Glucose (74-106) mg/dL Calcium (8.4-10.2) mg/dL Total Bilirubin (0.2-1.3) mg/dL AST (14-36) U/L ALT (0-35) U/L Alkaline Phosphatase (38-126) U/L Serum Total Protein (6.3-8.2) g/dL Albumin (3.5-5.0) g/dL Amylase (30-110) U/L Urinalys Dipstick Clnc Urine Color (YELLOW) Urine Appearance (CLEAR) Urine pH (5-6) Ur Specific [place] (1.005-1.025) POC Urine Protein Conf (Negative) Urine Ketones (NEGATIVE) Urine Nitrite (NEGATIVE) Urine Bilirubin (NEGATIVE) Urine Urobilinogen (0-1) mg/dL Urine Leukocytes (NEGATIVE) Urine WBC (Auto) (0-5) /HPF Urine RBC (Auto) (0-2) /HPF U Epithel Cells (Auto) (FEW) /HPF Urine Bacteria (Auto) (NEGATIVE) /HPF Urine RBC (0-5) Calin/ul Urine Mucus (Auto) (NEGATIVE) /HPF Ur Culture Indicated? Urine Glucose (NEGATIVE) mg/dL Urine HCG, Qual (Negative) - Progress Progress Note: 11/04/22 00:58 CT scan of the abdomen pelvis without contrast shows nonspecific enlarged/inflamed inguinal lymph nodes. The appendix is visualized and there is no evidence of acute appendicitis. Counseled pt/family regarding: lab results, diagnosis, need for follow-up, rad results - Departure Departure Disposition: Home Clinical Impression: Inguinal adenopathy Condition: Stable Critical Care Time: No Referrals: ARI GARDINER [Primary Care Provider] - Follow up/PCP as directed Additional Instructions: Drink plenty of fluids. Use 600 mg ibuprofen orally 3 times a day with food for 5 days. Additionally, add 650 mg orally of Tylenol 3 times a day for 5 days. Follow-up with your primary care provider for persistent symptoms.
[2022-11-03] MEDS ORDERED: Hydromorphone 1 mg/ml Injection IV ONE (23:11)
[2022-11-03] MEDS ORDERED: Zofran 4 MG/2 ML VIAL IV ONE (23:11)
[2022-11-03] MEDS ORDERED: Sodium Chloride 0.9% 1000 ML 1,000 ML IV STA (23:11)
[2022-11-03] MEDS ORDERED: TORAdol 30 mg Injection IV ONE (23:11)
[2022-11-03] MEDS ORDERED: TORAdol 30 mg Injection ONE (23:24)
[2022-11-03] MEDS ORDERED: Zofran 4 MG/2 ML VIAL ONE (23:24)
[2022-11-03] MEDS ORDERED: Hydromorphone 1 mg/ml Injection ONE (23:25)
[2022-11-03] MEDS ORDERED: Sodium Chloride 0.9% 1000 ML 1,000 ML ONE (23:25)
[2022-11-03 23:29] LABS: Absolute Neutrophil Ct (ANC) 2.75 x10^3/uL (1.4-6.9); Basophil (Absolute #) 0.04 x10^3/uL (0-0.4); Hematocrit 41.6 % (35-47); Hemoglobin 13.7 g/dL (12.0-16.0); Lymphocyte (Absolute #) 1.38 x10^3/uL (1.0-4.6); Lymphocytes % 28.3 % (24.0-44.0); Mean Cell Volume 87.2 fL (78-100); Mean Corpuscular Hemoglobin 28.7 pg (26-32); Mean Corpuscular Hgb Concent. 32.9 g/dL (32-36); Monocytes % 12.3 % (0.0-12.0); Neutrophil % 56.4 % (36.0-66.0); Platelet Count 251 x10^3/uL (150-450); Red Blood Count 4.77 x10^6/uL (4.1-5.4); Red Cell Distribution Width 12.1 % (11.5-14.0); White Blood Count 4.9 x10^3/uL (4.0-10.5)
[2022-11-03 23:42] LABS: ALKALINE PHOSPHATASE 78 U/L (38-126); AMYLASE 43 U/L (30-110); ANION GAP 7.5 MEQ/L (5-15); BLOOD UREA NITROGEN 11 mg/dL (7-17); CHLORIDE 103 mmol/L (98-107); Carbon Dioxide 28 mmol/L (22-30); Creatinine 1 0.85 mg/dL (0.52-1.04); EST GLOMERULAR FILTRATION RATE > 60.0 ML/MIN; Glucose 100 mg/dL (74-106); Potassium 3.6 mmol/L (3.5-5.1); SGOT/AST 27 U/L (14-36); SGPT/ALT 19 U/L (0-35); SODIUM 135 mmol/L (137-145); Total Protein 6.9 g/dL (6.3-8.2)
[2022-11-03 23:44] LABS: Mucus SLIGHT /HPF (NEGATIVE)
[2022-11-03 23:46] LABS: Appearance CLEAR (CLEAR); Bilirubin NEGATIVE (NEGATIVE); Dipstick done @ ? MAIN LAB; Glucose NEGATIVE (NEGATIVE); Ketones NEGATIVE (NEGATIVE); Nitrite NEGATIVE (NEGATIVE); Protein,Urine Dip NEGATIVE (Negative); RBC MODERATE Ery/ul (0-5); Specific Gravity 1.025 (1.005-1.025); Urobilinogen 1 mg/dL (0-1)
[2022-11-03 23:53] LABS: Urine Cultured Indicated? NO
[2022-11-04 01:12] VITALS: BP 148/90; PULSE 75; O2SAT 98
--- NOTE | 2022-11-04 08:46 | XRAY ---
Indication: Right lower quadrant pain. Multiple contiguous axial images obtained through the abdomen and pelvis without contrast. Comparison: February 13, 2019 Lung bases are clear. Heart not enlarged. Noncontrasted stomach and bowel loops nonobstructed with normal appendix. Again cholecystectomy. No free fluid/air. Remaining liver, pancreas, spleen, adrenal glands, kidneys, ureters, bladder, uterus, and aorta are unremarkable for noncontrast exam. Osseous structures intact. Right groin demonstrates new small lymph nodes with stranding favoring lymphadenitis. No ventral or inguinal hernias. Impression: 1. New right groin lymphadenitis. 2. Remaining CT abdomen/pelvis without contrast exam is negative. Comment: Preliminary interpretation made by [facility]. No critical discrepancy.
== END 2022-11-04 01:22 | disposition home or self-care (01) ==
LOC: ED 22:45
DX: R59.0 Localized enlarged lymph nodes (principal); R10.31 Right lower quadrant pain; Z79.899 Other long term (current) drug therapy
CPT/HCPCS: 36000; 36415; 74176; 80053; 81015; 81025; 82150; 85025; 96360; 96374; 96375; 99284; J1170; J1885; J2405

== ENCOUNTER 2024-07-11 20:14 | Emergency (ER) | payer BC ==
[2024-07-11 22:10] VITALS: RESP 20; TEMP 96.7
[2024-07-11] MEDS ORDERED: DECADRON 10MG INJ. ONE (22:17)
[2024-07-11] MEDS ORDERED: TORAdol 30 mg Injection ONE (22:17)
[2024-07-11] MEDS: TORAdol 30 mg Injection IM ONE (22:23)
[2024-07-11] MEDS: DECADRON 10MG INJ. IM ONE (22:24)
[2024-07-11 23:23] VITALS: O2SAT 99
--- NOTE | 2024-07-12 00:03 | ERPHSYRPT ---
- History of Present Illness Time Seen by Provider: 07/11/24 22:15 Source: patient Exam Limitations: no limitations Patient Subjective Stated Complaint: pt states she was lifting a suitcase and felt something pop when she was bent down. pt states she has had a SI joint inj ury in the past and feels the same Triage Nursing Assessment: pt ambulated into the er; pt was bent over ambulating; pt is axo x4; c/o back pain; pt states 7/10 pain to left lower back; no bruising or deformity present to lower back; skin PDW; no respiratory distress present; vitals wnl Physician History: 29-year-old female presents to our ED with left-sided back pain. Patient states she was maneuvering a heavy suitcase when she injured her back. Injury occurred today. Pain described as an ache that is localized to the left SI joint. Dasia nt has had an injury to the left SI in the past. Patient states symptoms are similar however more intense than her last episode. Patient reports some pain rating down to her buttock and leg. No blunt trauma. No fever no recent back procedure. No saddle anesthesia. No change in bowel bladder function. Symptoms are mild to moderate in intensity. Movement palpation reproduce pain. Patient otherwise healthy. She voices no other complaints or concerns at this time. Portions of this note were created with voice recognition technology. There may be grammatical, spelling, punctuation or sound alike errors Timing/Duration: today Method of Injury: bending Quality: aching Back Pain Radiation: buttocks, upper legs Severity of Pain-Max: moderate Severity of Pain-Current: mild Modifying Factors: Improves With: movement Associated Symptoms: denies symptoms Previous symptoms: same symptoms as today Allergies/Adverse Reactions: ciprofloxacin HCl [From Cipro] Allergy (Verified 07/11/24 21:49) Rash codeine Allergy (Verified 07/11/24 21:49) Rash hydrocodone bitartrate [From Vicodin] Adverse Reaction (Verified 07/11/24 21:49) Vomiting Home Medications: Dextroamphetamine/Amphetamine [Adderall 12.5 mg Tablet] 30 mg PO DAILY 11/03/22 [History] Cyclobenzaprine HCl 5 mg PO DAILY PRN 07/11/24 [History] Dextroamphetamine/Amphetamine [Dextroamp-Amphet ER 10 mg Cap] 10 mg PO HS 07/11/24 [History] Ondansetron [Ondansetron Odt ] 4 mg SL Q4HPRN PRN 07/11/24 [History] Propranolol HCl [Propranolol HCl ER] 80 mg PO DAILY 07/11/24 [History] Hx Tetanus, Diphtheria Vaccination/Date Given: Yes Hx Influenza Vaccination/Date Given: Yes Hx Pneumococcal Vaccination/Date Given: No Immunizations Up to Date: No Travel Risk - International Travel Have you traveled outside of the country in past 3 weeks: No - Emerging Infectious Disease Are you exhibiting symptoms associated with any current EIDs: No - Review of Systems Constitutional: No Symptoms, No Fever, No Chills Eyes: No Symptoms Ears, Nose, & Throat: No Symptoms Respiratory: No Symptoms, No Cough, No Dyspnea Cardiac: No Symptoms, No Chest Pain, No Edema, No Syncope Abdominal/Gastrointestinal: No Symptoms, No Abdominal Pain, No Nausea, No Vomiting, No Diarrhea Genitourinary Symptoms: No Symptoms, No Dysuria Musculoskeletal: No Symptoms, No Back Pain, No Neck Pain Skin: No Symptoms, No Rash Neurological: No Symptoms, No Dizziness, No Focal Weakness, No Sensory Changes Psychological: No Symptoms Endocrine: No Symptoms Hematologic/Lymphatic: No Symptoms Immunological/Allergic: No Symptoms All Other Systems: Reviewed and Negative - Past Medical History Pertinent Past Medical History: Yes Neurological History: Migraines ENT History: No Pertinent History Cardiac History: Hypertension Respiratory History: No Pertinent History Endocrine Medical History: No Pertinent History Musculoskeletal History: No Pertinent History GI Medical History: GERD, Gallbladder Disease, Ulcer History: No Pertinent History Psycho-Social History: No Pertinent History Female Reproductive Disorders: No Pertinent History Other Medical History: history of gerd, reoccuring h. pylori + in past, - Past Surgical History Past Surgical History: Yes Neuro Surgical History: No Pertinent History Cardiac: No Pertinent History Respiratory: No Pertinent History Gastrointestinal: Cholecystectomy Genitourinary: No Pertinent History Musculoskeletal: Orthopedic Surgery Female Surgical History: No Pertinent History Other Surgical History: tonsils, left foot surgery x2 - Female History Hx Last Menstrual Period: April 05, 2014 Hx Now: No - Social History Smoking Status: Never smoker Exposure to second hand smoke: No Drug Use: none Patient Lives Alone: No - Social Determinants of Health Will the patient participate in the screening: Yes Do you worry about a steady place to live?: No Do you have any problems with any of the following?: No known problems In the past 12 months,have you had to go without utilities?: No Transportation Issues: No Has anyone in your support network made you feel unsafe?: No Have you or anyone in your house had to go without enough: No - Nursing Vital Signs Nursing Vital Signs: Initial Vital Signs Temperature 96.7 F 07/11/24 21:54 Pulse Rate 92 H 07/11/24 21:54 Respiratory Rate 20 07/11/24 21:54 Blood Pressure 148/114 07/11/24 21:54 O2 Sat by Pulse Oximetry 100 07/11/24 21:54 Pain Scale Pain Intensity [Left Lower 7 Dorsal Back] Pain Intensity 5 - Physical Exam General Appearance: no apparent distress, alert Eye Exam: PERRL/EOMI, eyes nml inspection Neck Exam: normal inspection, full range of motion, No meningismus, No midline tenderness Respiratory Exam: normal breath sounds, airway intact, No respiratory distress Cardiovascular Exam: regular rate/rhythm, normal heart sounds Gastrointestinal Exam: soft, No tenderness, No mass Back Exam: point tenderness (Point tenderness over the left SI joint. 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, normal mood/affect, nml station & gait, sensation nml, No motor deficits Skin Exam: normal color, warm, dry, No rash Lymphatic Exam: No adenopathy SpO2 Interpretation: normal SpO2: 99 O2 Delivery: Room Air - Course Nursing assessment & vital signs reviewed: Yes - Radiology Exams L-Spine X-ray Interpretation: Interpreted by me (No acute findings no fractures or dislocations) Ordered Tests: Active Orders 24 hr Category Date Time Status LUMBAR LIMITED (2 OR 3 VIEWS) Stat Exams 07/11/24 22:13 Taken Medication Summary Discontinued Medications Generic Name Dose Route Start Last Admin Trade Name Mahamed PRN Reason Stop Dose Admin Dexamethasone Sodium Phosphate 6 mg 07/11/24 22:14 07/11/24 22:24 Dexamethasone Sod Phosphate 10 Mg/Ml IM 07/11/24 22:15 6 mg STAT ONE Administration Dexamethasone Sodium Phosphate Confirm 07/11/24 22:17 Dexamethasone Sod Phosphate 10 Mg/Ml Administered 07/11/24 22:18 Dose 10 mg .ROUTE .STK-MED ONE Ketorolac Tromethamine 30 mg 07/11/24 22:14 07/11/24 22:23 Ketorolac Tromethamine 30 Mg/Ml Inj IM 07/11/24 22:15 30 mg STAT ONE Administration Ketorolac Tromethamine Confirm 07/11/24 22:17 Ketorolac Tromethamine 30 Mg/Ml Inj Administered 07/11/24 22:18 Dose 30 mg .ROUTE .STK-MED ONE - Progress Progress: improved Progress Note: 29-year-old female presents to our ED for evaluation of acute low back pain. Patient denied urinary symptomology. Patient declined obtaining a urinalysis. Patient also denied possibility of . Patient received Toradol and Decadron for pain control. X-ray negative for acute findings. Pain significantly improved. Patient states he is ready for discharge. Patient declined a work note. Patient advised to follow-up with primary care doctor within 48 hours for reevaluation. Activity as tolerated. Patient voiced no other complaints or concerns. Portions of this note were created with voice recognition technology. There may be grammatical, spelling, punctuation or sound alike errors Complexity problem addressed is moderate acute complicated. No critical care time. Complex of data reviewed and analyzed is moderate. Test ordered test reviewed results analyzed and correlated clinically with history and physical exam. Risk of complication or risk of morbidity/mortality patient management is moderate. A prescription for Toradol forwarded to patient's pharmacy. Vital stable. Time spent to discharge patient approximately 10 minutes. Plan of care established for shared decision making. No social determinants of health present to impede follow-up. Portions of this note were created with voice recognition technology. There may be grammatical, spelling, punctuation or sound alike errors 07/12/24 00:10 Counseled pt/family regarding: diagnosis, need for follow-up, rad results - Departure Departure Disposition: Home Clinical Impression: Lumbosacral strain, SI join pain Condition: Stable Critical Care Time: No Referrals: MIKE RUIZ NP [Primary Care Provider] - Follow up/PCP as directed Additional Instructions: Discharge/Care Plan WILLIAM SENY ANDREY was seen on 07/12/24 in the Emergency Room. The patient was counseled regarding Diagnosis,Lab results, Imaging studies, need for follow up and when to return to the Emergency Room. Prescriptions given: Discharge Note I have spoken with the patient and/or caregivers. I have explained the patient's condition, diagnosis and treatment plan based on the information available to me at this time. I have answered the patient's and/or caregiver's questions and addressed any concerns. The patient and/or caregivers have as good understanding of the patient's diagnosis, condition and treatment plan as can be expected at this point. The vital signs have been stable. The patient's condition is stable and appropriate for discharge from the emergency department. The patient will pursue further outpatient evaluation with the primary care physician or other designated or consulting physician as outlined in the discharge instructions. The patient and/or caregivers are agreeable to this plan of care and follow-up instructions have been explained in detail. The patient and/or caregivers have received these instruction. The patient/and or caregivers are aware that any significant change in condition or worsening of symptoms yanely uld prompt an immediate return to this or the closest emergency department or call 911. Prescriptions: Ketorolac Trometh 10 mg Tab [TORAdol 10 MG TABLET] 10 mg PO TID 5 Days #15 tablet
[2024-07-12 00:11] VITALS: BP 145/91; PULSE 89
--- NOTE | 2024-07-12 08:55 | XRAY ---
Indication: Pain following lifting injury. Comparison: None 3 view lumbar spine demonstrates 5 lumbar segments in normal alignment with vertebral body heights/disc spaces maintained with incidental incidental cholecystectomy clips and a tampon. No other bony, articular, or soft tissue abnormalities.
== END 2024-07-12 00:30 | disposition home or self-care (01) ==
LOC: ED 20:14
DX: S39.012A Strain of muscle, fascia and tendon of lower back, initial encounter (principal); X50.0XXA Overexertion from strenuous movement or load, initial encounter; M53.3 Sacrococcygeal disorders, not elsewhere classified; I10 Essential (primary) hypertension; Z79.899 Other long term (current) drug therapy
CPT/HCPCS: 72100; 96372; 99283; J1100; J1885